=== PATIENT | female | born 1970 | race Hispanic/Latino ===

== ENCOUNTER 2017-05-19 20:14 | Emergency (ER) | END 2017-05-19 21:31 | disposition left against medical advice (07) | LOC: ERS 20:14 | DX: Z53.21 Procedure and treatment not carried out due to patient leaving prior to being seen by health care provider (principal) ==

== ENCOUNTER 2017-06-21 21:48 | Emergency (ER) | payer OTHER ==
[2017-06-21] MEDS ORDERED: Ketorolac Tromethamine 60 MG/2 ML VIAL ONE (23:05)
[2017-06-21] MEDS ORDERED: Cyclobenzaprine 10 MG TAB ONE (23:05)
--- NOTE | 2017-06-21 23:20 | RAD ---
TWO VIEWS CHEST: 06/21/17 HISTORY: Right rib pain. PA and lateral views of the chest is obtained. The lungs are well aerated. No evidence of active intr athoracic disease seen. No evidence of effusions, pneumonia or pneumothorax seen. IMPRESSION: Normal two views chest. POS: [facility]
--- NOTE | 2017-06-21 23:21 | RAD ---
TWO VIEWS RIGHT HIP 06/21/17 HISTORY: Injury to right hip by an elevator with right hip pain. AP and frogleg views right hip is obtained. No evidence of right hip fractures, subluxations or bony lesions seen. IMPRESSION: Normal two views right hip. POS: [facility]
== END 2017-06-21 23:31 | disposition home or self-care (01) ==
LOC: ERS 21:48
DX: S20.211A Contusion of right front wall of thorax, initial encounter (principal); S70.01XA Contusion of right hip, initial encounter; W22.8XXA Striking against or struck by other objects, initial encounter; Y92.69 Other specified industrial and construction area as the place of occurrence of the external cause; Y99.0 Civilian activity done for income or pay
CPT/HCPCS: 71020; 96372; J1885

== ENCOUNTER 2017-08-29 17:20 | Emergency (ER) | payer SELFPAY ==
[2017-08-29 17:50] LABS: #Eosinphils 1.7 thou/uL (0.0-0.7); #Monocytes 0.5 thou/uL (0.11-0.59); #Neutrophils 7.4 thou/uL (1.40-6.50); %Basophils 0.4 % (0.0-1.0); %Eosinophils 15.8 % (0.0-10.0); %Lymphocytes 9.8 % (21.0-51.0); %Monocytes 4.9 % (0.0-10.0); %Neutrophils 69.2 % (42.0-75.0); Mean Corpuscular HGB CONC 32.1 g/dL (32.0-36.0); Mean Corpuscular Hemoglobin 30.4 pg (27.0-31.0); Mean Corpuscular Volume 94.9 fl (81.0-99.0); Platelet Count 294 thou/uL (130-400); RBC Distribution Width 13.7 % (11.5-14.5); Red Blood Cell (RBC) Count 4.28 mill/uL (4.20-5.40); White Blood Cell (WBC) Count 10.7 thou/uL (4.8-10.8)
[2017-08-29 18:18] LABS: ALT (SGPT) 16 U/L (8-55); AST (SGOT) 18 U/L (5-34); Albumin 3.7 g/dL (3.5-5.0); Alkaline Phosphatase 114 U/L (40-150); Anion Gap 11 mmol/L (10-20); BUN (Urea Nitrogen) 16 mg/dL (7.0-18.7); Bilirubin, Total 0.4 mg/dL (0.2-1.2); Calc. Creatinine Clearance 0 mL/min (70-130); Calcium 8.6 mg/dL (7.8-10.44); Carbon Dioxide 22 mmol/L (22-29); Chloride 107 mmol/L (98-107); Estimated GFR-MDRD Greater than 90; Globulin 3.6 g/dL (2.4-3.5); Glucose 103 mg/dL (70-105); Potassium 3.7 mmol/L (3.5-5.1); Protein, Total 7.3 g/dL (6.0-8.3); Sodium 136 mmol/L (136-145)
[2017-08-29 18:27] LABS: CK (CPK) 56 U/L (29-168); Lipase 17 U/L (8-78)
[2017-08-29 18:29] LABS: CKMB 1.3 ng/mL (0-6.6); Troponin I Less than 0.010 ng/mL (< 0.028)
[2017-08-29 18:38] LABS: Bilirubin Negative (Negative); Blood, Urine Negative (Negative); Clarity CLEAR (Clear); Glucose, Urine (Dipstick) Negative (Negative); Leukocyte Moderate (Negative); Nitrite Negative (Negative); Protein, Urine (Dipstick) Trace mg/dL (Neg-Trace); Specific Gravity, Urine 1.034 (1.002-1.036)
[2017-08-29 18:41] LABS: Bacteria/HPF None Seen HPF (None Seen); Hyaline Casts/LPF 7-10 HYALINE CAST LPF (0-3 Hyaline); Pathc Cast-AUWi Flag 0.67 (0-2.49); WBC/HPF 21-50 HPF (0-3)
[2017-08-29 18:54] LABS: Crystals/HPF None Seen HPF (Negative); Oval Fat Bodies/HPF None Seen HPF (None Seen); Renal Epithelial None Seen HPF (0-3); Transitional Epithelial NONE SEEN HPF (0-3); Trichomonas/HPF None Seen HPF (None Seen); Yeast-All Forms None Seen HPF (None Seen)
[2017-08-29] MEDS ORDERED: Lidocaine Viscous Sol 2% 15 ml UD Cup ONE (18:56)
[2017-08-29] MEDS ORDERED: Pantoprazole 40 MG VIAL ONE (18:57)
[2017-08-29] MEDS ORDERED: Ondansetron HCl/PF 4 MG/2 ML Vial ONE (18:57)
[2017-08-29] MEDS ORDERED: Mag-Al 1200 mg/1200 mg/30 ML UDCUP ONE (18:57)
--- NOTE | 2017-08-29 19:13 | RAD ---
FRONTAL RADIOGRAPH CHEST PORTABLE UPRIGHT: Date: 08-29-17 Comparison: 06-21-17 History: Abdominal pain with nausea, vomiting and diarrhea. FINDINGS: No pneumothorax, pleural fluid, focal consolidation or alveolar edema. Heart and mediastinal contours are unremarkable. Osseous structures appear intact. IMPRESSION: No acute findings. POS: [facility]
== END 2017-08-29 21:37 | disposition home or self-care (01) ==
LOC: ERS 17:20
DX: K52.9 Noninfective gastroenteritis and colitis, unspecified (principal); N39.0 Urinary tract infection, site not specified; I10 Essential (primary) hypertension; Z79.899 Other long term (current) drug therapy
CPT/HCPCS: 36415; 71045; 80053; 81003; 81015; 82550; 82553; 83690; 84484; 85025; 93005; 96361; 96372; 96374; 96375; C9113; J2405

== ENCOUNTER 2018-12-06 23:27 | Emergency (ER) | payer SELFPAY ==
[2018-12-06] MEDS ORDERED: Lidocaine 1% w/Epinephrine 1:100K 20 ML VIAL ONE (23:35)
[2018-12-06] MEDS ORDERED: Acetaminophen/Codeine 30-300mg Tablet ONE (23:57)
[2018-12-07] MEDS ORDERED: Bacitracin Zinc 1 Packet ONE (01:58)
--- NOTE | 2018-12-07 07:25 | CT ---
PRELIMINARY REPORT/[facility]/EMERGENCY AFTER HOURS PROCEDURE: EXAM: CT Head Without Contrast EXAM DATE/TIME: 12/07/2018 12:17 AM CLINICAL HISTORY: 47 years old, female; Pain and injury or trauma; Initial encounter; Laceration; Without residual fore ign body; Head, generalized; Headache; Patient HX: F47 presents to ED C/O fall associated w/ head lac . PT denies loc but reports head and neck pain. PT denies any lower extremity pain and reports some c ontusions on the ule TECHNIQUE: Imaging protocol: Axial computed tomography images of the head without contrast. COMPARISON: No relevant prior studies available. FINDINGS: Brain: No intracrainal hemorrhage. No midline shift. The brain parenchyma appears normal for age. Ventricles: No ventriculomegaly. Bones/joints: Unremarkable. No acute fracture. Sinuses: Visualized sinuses are unremarkable. No fluid levels. Mastoid air cells: Visualized mastoid air cells are well aerated. No mastoid effusion. Soft tissues: Unremarkable. IMPRESSION: No acute intracranial abnormality. Thank you for allowing us to participate in the care of your patient. Dictated and Authenticated by: Shaka Merritt MD 12/07/2018 12:42 AM Central Time ([place] & [place]) FINAL REPORT EMERGENCY AFTER HOURS CT BRAIN: I agree with the preliminary report provided. No acute intracranial abnormality is evident. There i s a left parietal scalp contusion. POS: [facility]
--- NOTE | 2018-12-07 07:25 | RAD ---
LEFT HUMERUS 2 VIEWS: INDICATION: History of fall with left arm pain. COMPARISON: None. FINDINGS: No acute fracture or subluxation is evident. IMPRESSION: No acute abnormality. POS: [facility]
--- NOTE | 2018-12-07 07:27 | CT ---
PRELIMINARY REPORT/[facility]/EMERGENCY AFTER HOURS PROCEDURE: EXAM: CT Cervical Spine Without Contrast EXAM DATE/TIME: 12/07/2018 12:17 AM CLINICAL HISTORY: 47 years old, female; Pain and injury or trauma; Initial encounter; Laceration; Without foreign body; Patient HX: F47 presents to ED C/O fall associated w/ head lac. PT denies loc but reports head and n nelly pain. PT denies any lower extremity pain and reports some contusions on the ule TECHNIQUE: Imaging protocol: Axial computed tomography images of the cervical spine without contrast. Coronal an d sagittal reformatted images were created and reviewed. COMPARISON: No relevant prior studies available. FINDINGS: Vertebrae: No acute fracture. Normal alignment. Discs/Spinal canal/Neural foramina: No spinal stenosis. No neural foraminal narrowing. Soft tissues: Unremarkable. Lungs: Lung apices are normal. IMPRESSION: No acute findings. Thank you for allowing us to participate in the care of your patient. Dictated and Authenticated by: Shaka Merritt MD 12/07/2018 12:59 AM Central Time ([place] & [place]) FINAL REPORT EMERGENCY AFTER HOURS CT CERVICAL SPINE: I agree with the preliminary report provided. No acute fracture or subluxation is demonstrated. POS:
== END 2018-12-07 02:01 | disposition home or self-care (01) ==
LOC: ERS 23:27
DX: S01.01XA Laceration without foreign body of scalp, initial encounter (principal); I10 Essential (primary) hypertension; Z79.899 Other long term (current) drug therapy; W22.8XXA Striking against or struck by other objects, initial encounter
CPT/HCPCS: 12002; 70450; 72125; J2001

== ENCOUNTER 2018-12-11 15:16 | Emergency (ER) | payer SELFPAY ==
[2018-12-11] MEDS ORDERED: HYDROcodone/Acetaminophen 5/325 mg Tablet ONE (15:45)
== END 2018-12-11 15:48 | disposition home or self-care (01) ==
LOC: ERS 15:16
DX: S01.01XD Laceration without foreign body of scalp, subsequent encounter (principal); I10 Essential (primary) hypertension; Z79.899 Other long term (current) drug therapy

== ENCOUNTER 2019-02-20 19:41 | Emergency (ER) | payer SELFPAY ==
[2019-02-20] MEDS ORDERED: Ketorolac Tromethamine 30 MG/ML VIAL ONE (20:25)
--- NOTE | 2019-02-20 21:19 | RAD ---
XR Ribs Lt>=2 View W/PA CXR HISTORY: Left rib injury COMPARISON: None. FINDINGS: Heart size and mediastinum are within normal limits. The lungs are clear of infiltrates. No pneumothorax or pleural effusion. No rib fractures are identified. Incidental note is made of a prominent right-sided osteophyte at the L3-4 level IMPRESSION: Negative left ribs.
== END 2019-02-20 21:30 | disposition home or self-care (01) ==
LOC: ERS 19:41
DX: S20.212A Contusion of left front wall of thorax, initial encounter (principal); I10 Essential (primary) hypertension; W01.0XXA Fall on same level from slipping, tripping and stumbling without subsequent striking against object, initial encounter
CPT/HCPCS: 96372; J1885

== ENCOUNTER 2019-03-07 17:19 | Observation (INO) | payer SELFPAY ==
[2019-03-07 17:48] LABS: #Eosinphils 1.4 thou/uL (0.0-0.7); #Lymphocytes 2.1 thou/uL (1.20-3.40); #Monocytes 0.4 thou/uL (0.11-0.59); #Neutrophils 4.7 thou/uL (1.40-6.50); %Basophils 0.5 % (0.0-1.0); %Eosinophils 16.1 % (0.0-10.0); %Lymphocytes 24.2 % (21.0-51.0); %Monocytes 4.8 % (0.0-10.0); %Neutrophils 54.5 % (42.0-75.0); Hemoglobin 13.6 g/dL (12.0-16.0); Mean Corpuscular HGB CONC 33.8 g/dL (32.0-36.0); Mean Corpuscular Hemoglobin 30.3 pg (27.0-31.0); Mean Corpuscular Volume 89.8 fL (78.0-98.0); Mean Platelet Volume 8.6 fL (7.4-10.4); Platelet Count 253 thou/uL (130-400); RBC Distribution Width 12.4 % (11.5-14.5); White Blood Cell (WBC) Count 8.5 thou/uL (4.8-10.8)
--- NOTE | 2019-03-07 18:05 | RAD ---
CHEST ONE VIEW: 03/07/19 HISTORY: Chest pain. COMPARISON: 02/20/19. FINDINGS: Cardiac silhouette is magnified by projection. Pulmonary vasculature is unremarkable. Mediastinum is midline. No confluent air space consolidation or evidence of pneumothorax. IMPRESSION: No active cardiopulmonary abnormalities are demonstrated. POS: [facility]
[2019-03-07 18:30] LABS: ALT (SGPT) 24 U/L (8-55); AST (SGOT) 27 U/L (5-34); Albumin 4.4 g/dL (3.5-5.0); Alkaline Phosphatase 106 U/L (40-150); Anion Gap 14 mmol/L (10-20); BUN (Urea Nitrogen) 13 mg/dL (7.0-18.7); Bilirubin, Total 0.5 mg/dL (0.2-1.2); CK (CPK) 117 U/L (29-168); Calc. Creatinine Clearance 0 mL/min (70-130); Calcium 10.1 mg/dL (7.8-10.44); Carbon Dioxide 25 mmol/L (22-29); Chloride 103 mmol/L (98-107); Estimated GFR-MDRD Greater than 90; Globulin 3.8 g/dL (2.4-3.5); Glucose 91 mg/dL (70-105); Lipase 14 U/L (8-78); Potassium 3.6 mmol/L (3.5-5.1); Protein, Total 8.2 g/dL (6.0-8.3); Sodium 138 mmol/L (136-145)
[2019-03-07] MEDS ORDERED: Nitroglycerin 2% Ointment 1 INCH/1 GM Packet ONE (19:32)
[2019-03-07] MEDS ORDERED: Aspirin Chewable 81 MG TAB ONE (19:33)
[2019-03-07] MEDS ORDERED: Acetaminophen 500 MG TAB ONE (20:56)
[2019-03-07 21:12] LABS: Troponin I Less than 0.010 ng/mL (< 0.028)
[2019-03-08 00:15] LABS: Troponin I Less than 0.010 ng/mL (< 0.028)
[2019-03-08] MEDS ORDERED: Guaifenesin DM 100-10/5 ML UDCUP PO PRN (01:44)
[2019-03-08] MEDS ORDERED: Bisacodyl 10 MG SUPP PR PRN (01:44)
[2019-03-08] MEDS ORDERED: Acetaminophen 325 MG TAB PO PRN (01:44)
[2019-03-08] MEDS ORDERED: Senokot S 8.6-50 MG TAB PO PRN (01:44)
--- NOTE | 2019-03-08 03:02 | HP ---
REASON FOR ADMISSION: Chest pain. HISTORY OF PRESENTING ILLNESS: The patient gives history of having retrosternal and left-sided chest pain, which started out 2 days back. This pain has been radiating to the arm as well. She mentions that the pain is 4 to 5/10 in intensity and it comes and goes. Each time it comes, the pain lasts for 10 minutes or so. It is worse on exertion. She has also had elevated blood pressures from last 2 days. No cough or fever. This morning, the patient also developed dizziness, felt nauseous and very tired, hence made it to emergency room. She mentions that she has had a stress test done at [facility] 3 years back, which was normal as far as she knows. PAST MEDICAL AND SURGICAL HISTORY: 1. 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 2. Hypertension. 3. No prior cardiac catheterization. Appendectomy. 4. Tubal ligation. 5. Colonoscopy done on the 07 of February showed diverticulosis. No mass was seen. CURRENT MEDICATION: 1. Aspirin 81 mg p.o. daily. 2. Lopressor 25 mg p.o. twice daily. ALLERGIES: BENADRYL, PENICILLIN. PERSONAL HISTORY: Does not abuse alcohol or drugs. No history of smoking. FAMILY HISTORY: She does not know much about her biological parents as she was adopted. Power of assistant attorney general is her son, Mr. Matt and fiance, Mr. Dunham. CODE STATUS: Full. REVIEW OF SYSTEMS: CONSTITUTIONAL: Negative for weight loss or gain, ability to conduct usual activities. SKIN: Negative for rash, itching. EYES: Negative for double vision, pain. ENT/MOUTH: Negative for nose bleeding, neck stiffness, pain, tenderness. CARDIOVASCULAR: Negative for palpitations, dyspnea on exertion, orthopnea. RESPIRATORY: Negative for shortness of breath, wheezing, cough, hemoptysis, fever or night sweats. GASTROINTESTINAL: Negative for poor appetite, abdominal pain, heartburn, nausea , vomiting, constipation, or diarrhea. GENITOURINARY: Negative for urgency, frequency, dysuria, nocturia. MUSCULOSKELETAL: Negative for pain, swelling. NEUROLOGIC/PSYCHIATRIC: Negative for anxiety, depression. ALLERGY/IMMUNOLOGIC: Negative for skin rash, bleeding tendency. PHYSICAL EXAMINATION: GENERAL: The patient is a 48-year-old female, who is currently not in any acute distress. VITAL SIGNS: Blood pressure 180/90, pulse 72 per minute, respiratory rate 14 per minute, temperature 98.4 degrees Fahrenheit, saturating 98% on room air. NECK: Supple. No elevated JVD. HEENT: Eyes; extraocular muscles intact. Pupils reacting to light. Oral cavity, mucous membranes are moist. No exudates or congestion. CARDIOVASCULAR: S1-S2 heard, regular rhythm. RESPIRATORY: Air entry 2+ bilateral. No rales or rhonchi. ABDOMEN: Soft, bowel sounds heard. No tenderness, rigidity, or guarding. EXTREMITIES: No peripheral edema or calf tenderness. VASCULAR: Peripheral pulses 2+ bilateral. No ischemic ulcerations or gangrene. CENTRAL NERVOUS SYSTEM: No gross focal deficits noted. The patient is alert, awake, oriented well. PSYCHIATRIC: The patient's mood is euthymic. No hallucinations or delusions. LABORATORY DATA: EKG done shows normal sinus rhythm at 73 beats per minute. There is poor R-wave progression seen. Chest x-ray done shows no acute cardiopulmonary abnormality. Electrolytes stable. CBC is within normal limits. CLINICAL IMPRESSION AND PLAN: The patient will be under observation on telemetry for chest pain, rule out acute coronary syndrome. She will be on full-dose aspirin and continue her home dose of 25 mg Lopressor twice daily as before. A nuclear stress test will be obtained. If the stress test is normal, patient can safely be discharged home. We will continue to closely monitor her on telemetry. Job ID: [id number] MTDD
[2019-03-08 04:44] LABS: #Eosinphils 1.6 thou/uL (0.0-0.7); #Monocytes 0.5 thou/uL (0.11-0.59); #Neutrophils 3.9 thou/uL (1.40-6.50); %Basophils 0.5 % (0.0-1.0); %Eosinophils 19.3 % (0.0-10.0); %Lymphocytes 25.3 % (21.0-51.0); %Monocytes 6.3 % (0.0-10.0); %Neutrophils 48.6 % (42.0-75.0); Hemoglobin 12.5 g/dL (12.0-16.0); Mean Corpuscular HGB CONC 34.1 g/dL (32.0-36.0); Mean Corpuscular Hemoglobin 31.2 pg (27.0-31.0); Mean Corpuscular Volume 91.7 fL (78.0-98.0); Platelet Count 222 thou/uL (130-400); RBC Distribution Width 12.5 % (11.5-14.5); Red Blood Cell (RBC) Count 4.02 mill/uL (4.20-5.40)
[2019-03-08 05:06] LABS: Anion Gap 14 mmol/L (10-20); BUN (Urea Nitrogen) 16 mg/dL (7.0-18.7); Calc. Creatinine Clearance 113 mL/min (70-130); Calcium 9.2 mg/dL (7.8-10.44); Carbon Dioxide 22 mmol/L (22-29); Cardiac Risk 3.2 (Less than 4.5); Chloride 108 mmol/L (98-107); Cholesterol 158 mg/dl (< 200 Desired); Estimated GFR-MDRD Greater than 90; Glucose 97 mg/dL (70-105); HDL Cholesterol 50 mg/dL (>60 Neg Risk); LDL Cholesterol, Calculated 99 mg/dL; Potassium 3.6 mmol/L (3.5-5.1); Sodium 140 mmol/L (136-145); Triglycerides 47 mg/dL (Less than 150)
[2019-03-08 07:23] VITALS: TEMP 97.9
[2019-03-08] MEDS ORDERED: Aspirin Chewable 81 MG TAB PO SCH (09:00)
[2019-03-08] MEDS ORDERED: Famotidine 20 MG TAB PO SCH (09:00)
[2019-03-08] MEDS ORDERED: Metoprolol Tartrate 25 MG TAB PO SCH (09:00)
[2019-03-08] MEDS ORDERED: Enoxaparin Sodium 40 MG/0.4 ML SYRINGE SC SCH (09:00)
[2019-03-08] MEDS ORDERED: Aspirin 325 mg Enteric Coated Tablet PO SCH (09:00)
--- NOTE | 2019-03-08 12:36 | NM ---
Radionucleotide stress and rest myocardial perfusion scan with CT attenuation correction and SPECT im aging Left wall motion evaluation and ejection fraction HISTORY: Chest pain. FINDINGS: Kaleb protocol. Total test time 9:42. Heterogeneous uptake of radiotracer throughout the left ventricular myocardium. No focal perfusion de fect or reversibility. QGS analysis of gated SPECT images shows no focal wall motion abnormalities. TID1.0. LHR 38%. Left ventricular ejection fraction calculated at 69%. IMPRESSION: Normal myocardial perfusion scan. Normal LVEF.
[2019-03-08 12:41] VITALS: BP 125/58
[2019-03-08 13:32] VITALS: BMI 30.2
--- NOTE | 2019-03-09 15:16 | DIS ---
DATE OF ADMISSION: 03/07/2019 DATE OF DISCHARGE: 03/08/2019 DISCHARGE DIAGNOSES: 1. Chest pain. 2. Hypertension. 3. Reported history of prior myocardial infarctions. HISTORY OF PRESENT ILLNESS: The patient is a 48-year-old female, who presented via the emergency department reporting substernal chest pain that was radiating to her left arm as well. She initially had a workup with some poor R-wave progression on her EKG, normal chest x-ray, and normal labs. HOSPITAL COURSE: The patient was placed in observation, continued on telemetry. She had serial cardiac isoenzymes, which were unremarkable, and no findings on her quality assurance monitor chassis. She subsequently underwent a stress test with Nuclear Medicine that showed normal myocardial perfusion with an ejection fraction calculated at 69%. There was no evidence of any prior myocardial injury as the patient had indicated was the case. These findings were discussed with the patient. She was feeling at her baseline and was comfortable with discharge for outpatient followup. PHYSICAL EXAMINATION: VITAL SIGNS: At the time of discharge, temperature 97.9, pulse 75, respirations 18, O2 saturation 98% on room air, and BP 125/58. GENERAL: She is awake, alert, oriented, pleasant, and cooperative. HEART: Regular rate and rhythm. No murmurs, gallops, or rubs. LUNGS: Clear bilaterally. ABDOMEN: Soft, nontender, and nondistended. Positive bowel sounds. No masses. No organomegaly. EXTREMITIES: No cyanosis, clubbing, or edema. DISPOSITION: The patient is discharged to home. DIET: She is to be on a heart-healthy diet. ACTIVITY: Her activity level is as tolerated. MEDICATIONS: She will be on: 1. Metoprolol 25 b.i.d. 2. Metronidazole 500 mg b.i.d. FOLLOWUP: She will follow up with the [facility] and can return to the hospital should she have any problems prior to that time. Job ID: [id number]
== END 2019-03-08 14:42 | disposition home or self-care (01) ==
LOC: ERS 17:19 → 2SW 20:08
PROVIDERS: ADMIT Internal Medicine; ATTEND Internal Medicine
DX: R07.2 Precordial pain (principal); I10 Essential (primary) hypertension; I25.10 Atherosclerotic heart disease of native coronary artery without angina pectoris; Z79.82 Long term (current) use of aspirin; Z79.899 Other long term (current) drug therapy; Z88.0 Allergy status to penicillin; Z88.8 Allergy status to other drugs, medicaments and biological substances
CPT/HCPCS: 36415; 71045; 78452; 80048; 80053; 80061; 82550; 83690; 84484; 85025; 93005; 93017; 94760; 96360; 96361; A9500; G0378

== ENCOUNTER 2019-11-04 20:31 | Emergency (ER) | payer OTHER, SELFPAY ==
--- NOTE | 2019-11-04 21:15 | CT ---
Exam: Head CT without contrast HISTORY: Patient slipped and fell hour to arrival. Pain COMPARISON: none FINDINGS: Hemorrhage: No intraparenchymal hemorrhage or extra-axial hematoma. Brain parenchyma: Cortical charlton-white matter differentiation is preserved. No mass effect or midline shift. Basilar cisterns are patent. Ventricular system: Ventricles and sulci are patent and symmetric. Calvarium: Intact. Sinuses and mastoid air cells: Adequate aeration. IMPRESSION: No intracranial post traumatic sequelae.
--- NOTE | 2019-11-04 21:17 | CT ---
Exam: CT cervical spine without contrast HISTORY: Fall. Pain. Trauma. COMPARISON: 12/07/2018 FINDINGS: No craniocervical dissociation. Appropriate alignment of the lateral masses of C1 and C2. Intact odon toid process Appropriate alignment of the facets. Straightening of cervical lordosis may be due to patient position, muscle spasm or cervical collar. Soft tissue neck structures: No mass, lymphadenopathy or hematoma. No prevertebral soft tissue swelli ng. Upper mediastinum and lung apices: Unremarkable Central spinal canal: Neural foramina and central spinal canal are patent. Evaluation is limited by t echnique Vertebral bodies: Cervical spine vertebral body height is maintained. No fracture. IMPRESSION: 1. No fracture 2. Straightening of cervical lordosis. If there is concern for ligamentous injury, consider MRI
[2019-11-04] MEDS ORDERED: Ondansetron ODT 4 MG TAB ONE (21:27)
[2019-11-04] MEDS ORDERED: Ketorolac Tromethamine 30 MG/ML VIAL ONE (21:27)
== END 2019-11-04 21:42 | disposition home or self-care (01) ==
LOC: ERS 20:31
DX: S06.0X9A Concussion with loss of consciousness of unspecified duration, initial encounter (principal); I10 Essential (primary) hypertension; I25.2 Old myocardial infarction; W22.8XXA Striking against or struck by other objects, initial encounter
CPT/HCPCS: 70450; 72125; 96372; J1885; L0120; Q0162

== ENCOUNTER 2020-07-29 14:17 | Emergency (ER) | payer OTHER, SELFPAY ==
[~2020-07-29 14:17] MED LIST: Iopamidol-370 76% 500 ML 1 ML ONE
[2020-07-29 15:46] LABS: Bilirubin Negative (Negative); Blood, Urine Negative (Negative); Clarity Clear (Clear); Glucose, Urine (Dipstick) 300 mg/dL (Negative); Ketone, Urine Trace mg/dL (Negative); Leukocyte Negative Leu/uL (Negative); Nitrite Negative (Negative); Protein, Urine (Dipstick) 20 mg/dL (Neg-Trace); Specific Gravity, Urine 1.035 (1.002-1.036); pH, Urine 5.5 (5.0-9.0)
[2020-07-29 16:02] LABS: #Lymphocytes 0.7 thou/uL (1.20-3.40); #Monocytes 0.1 thou/uL (0.11-0.59); #Neutrophils 6.5 thou/uL (1.40-6.50); %Eosinophils 0.2 % (0.0-10.0); %Lymphocytes 9.2 % (21.0-51.0); %Monocytes 0.6 % (0.0-10.0); Hemoglobin 12.6 g/dL (12.0-16.0); Mean Corpuscular HGB CONC 34.4 g/dL (32.0-36.0); Mean Corpuscular Hemoglobin 30.5 pg (27.0-31.0); Mean Corpuscular Volume 88.9 fL (78.0-98.0); Mean Platelet Volume 8.2 fL (7.4-10.4); Platelet Count 247 thou/uL (130-400); RBC Distribution Width 12.3 % (11.5-14.5); Red Blood Cell (RBC) Count 4.13 mill/uL (4.20-5.40); White Blood Cell (WBC) Count 7.3 thou/uL (4.8-10.8)
[2020-07-29 16:22] LABS: ALT (SGPT) 22 U/L (8-55); AST (SGOT) 23 U/L (5-34); Albumin 3.8 g/dL (3.5-5.0); Alkaline Phosphatase 134 U/L (40-110); Anion Gap 12 mmol/L (10-20); BUN (Urea Nitrogen) 20 mg/dL (7.0-18.7); Bilirubin, Total 0.2 mg/dL (0.2-1.2); Calc. Creatinine Clearance 0 mL/min (70-130); Carbon Dioxide 23 mmol/L (22-29); Chloride 108 mmol/L (98-107); Globulin 3.9 g/dL (2.4-3.5); Glucose 225 mg/dL (70-105); Protein, Total 7.7 g/dL (6.0-8.3); Sodium 139 mmol/L (136-145)
[2020-07-29] MEDS ORDERED: Ondansetron PF 4 MG/2 ML Vial ONE (17:01)
[2020-07-29] MEDS ORDERED: Ketorolac Tromethamine 30 MG/ML VIAL ONE (17:01)
--- NOTE | 2020-07-29 17:29 | CT ---
CT OF THE ABDOMEN AND PELVIS WITH IV CONTRAST INDICATION: History of right-sided flank pain and dysuria and suprapubic pain for 3 days COMPARISON: None FINDINGS: ABDOMEN: Lung bases: Clear Liver: Mild fatty liver Gallbladder: Normal appearing. Pancreas: Normal. Adrenal glands: Normal. Spleen: Normal. Kidneys and ureters: Normal. No hydronephrosis. Vasculature: Normal. Lymph nodes:No lymphadenopathy. Free fluid in abdomen:No free fluid is evident. PELVIS: Small and large bowel: Colonic diverticulosis with a mild amount retained stool within the colon. Sma ll bowel is of normal caliber. There is food and debris within the stomach. Appendix:Not visualized and may be surgically absent Bladder: Partially decompressed with mild wall thickening Rectal and perirectal soft tissues:Normal. Reproductive structures: Normal. Free fluid in pelvis: No free fluid is evident. Lymphadenopathy pelvis: No lymphadenopathy is evident. Osseous structures: No acute osseous abnormality. No destructive osteolytic or osteoblastic lesion i s identified. There is scattered degenerative and osteoarthritic changes. Soft tissues:Normal. IMPRESSION: 1. The bladder is partially decompressed with mild wall thickening. Component of cystitis is not excl uded. 2. No hydronephrosis or overt findings of pyelonephritis is demonstrated. 3. Mild fatty liver. 4. Colonic diverticulosis with mild amount retained stool within the colon.
[2020-07-29] MEDS ORDERED: Morphine 4 MG/ML VIAL ONE (17:53)
== END 2020-07-29 18:55 | disposition home or self-care (01) ==
LOC: ERS 14:17
DX: R10.31 Right lower quadrant pain (principal); Z79.899 Other long term (current) drug therapy; I25.10 Atherosclerotic heart disease of native coronary artery without angina pectoris; I25.2 Old myocardial infarction; I10 Essential (primary) hypertension
CPT/HCPCS: 36415; 74177; 80053; 81003; 85025; 96374; 96375; J1885; J2270; J2405; Q9967

== ENCOUNTER 2021-05-12 21:30 | Emergency (ER) | payer SELFPAY ==
[2021-05-12 22:04] LABS: #Eosinphils 0.8 thou/uL (0.0-0.7); #Lymphocytes 2.3 thou/uL (1.20-3.40); #Monocytes 0.4 thou/uL (0.11-0.59); #Neutrophils 8.8 thou/uL (1.40-6.50); %Basophils 0.4 % (0.0-1.0); %Eosinophils 6.3 % (0.0-10.0); %Lymphocytes 18.7 % (21.0-51.0); %Monocytes 3.3 % (0.0-10.0); %Neutrophils 71.3 % (42.0-75.0); Hemoglobin 13.7 g/dL (12.0-16.0); Mean Corpuscular HGB CONC 32.9 g/dL (32.0-36.0); Mean Corpuscular Hemoglobin 30.7 pg (27.0-31.0); Mean Corpuscular Volume 93.3 fL (78.0-98.0); Mean Platelet Volume 7.8 fL (7.4-10.4); Platelet Count 335 thou/uL (130-400); RBC Distribution Width 12.4 % (11.5-14.5); Red Blood Cell (RBC) Count 4.45 mill/uL (4.20-5.40); White Blood Cell (WBC) Count 12.4 thou/uL (4.8-10.8)
[2021-05-12 22:12] LABS: Bilirubin Negative (Negative); Blood, Urine Negative (Negative); Clarity Clear (Clear); Glucose, Urine (Dipstick) Normal (Negative); Ketone, Urine Negative (Negative); Leukocyte Negative Leu/uL (Negative); Nitrite Negative (Negative); Protein, Urine (Dipstick) Negative (Neg-Trace); Specific Gravity, Urine 1.029 (1.002-1.036); Urobilinogen Normal mg/dL (Less than 2); pH, Urine 5.5 (5.0-9.0)
[2021-05-12 22:22] LABS: ALT (SGPT) 24 U/L (8-55); AST (SGOT) 20 U/L (5-34); Albumin 3.6 g/dL (3.5-5.0); Alkaline Phosphatase 141 U/L (40-110); Anion Gap 12 mmol/L (10-20); BUN (Urea Nitrogen) 21 mg/dL (9.8-20.1); Bilirubin, Total 0.3 mg/dL (0.2-1.2); Calc. Creatinine Clearance 0 mL/min (70-130); Calcium 9.1 mg/dL (7.8-10.44); Carbon Dioxide 27 mmol/L (22-29); Chloride 102 mmol/L (98-107); Globulin 3.5 g/dL (2.4-3.5); Glucose 108 mg/dL (70-105); Lipase 110 U/L (8-78); Potassium 4.3 mmol/L (3.5-5.1); Protein, Total 7.1 g/dL (6.0-8.3); Sodium 137 mmol/L (136-145)
[2021-05-12] MEDS ORDERED: Dicyclomine 20 MG TAB ONE (23:45)
[2021-05-12] MEDS ORDERED: Ondansetron PF 4 MG/2 ML Vial ONE (23:47)
== END 2021-05-13 00:50 | disposition home or self-care (01) ==
LOC: ERS 21:30
DX: K29.70 Gastritis, unspecified, without bleeding (principal); D72.829 Elevated white blood cell count, unspecified; R94.31 Abnormal electrocardiogram [ECG] [EKG]; I25.10 Atherosclerotic heart disease of native coronary artery without angina pectoris; I10 Essential (primary) hypertension; I25.2 Old myocardial infarction; Z95.5 Presence of coronary angioplasty implant and graft; Z79.899 Other long term (current) drug therapy
CPT/HCPCS: 36415; 74177; 80053; 81003; 83690; 84484; 85025; 93005; 96374; J2405; Q9967

== ENCOUNTER 2021-05-18 18:15 | Emergency (ER) | payer SELFPAY ==
[2021-05-18 19:13] LABS: #Eosinphils 0.8 thou/uL (0.0-0.7); #Lymphocytes 1.9 thou/uL (1.20-3.40); #Monocytes 0.4 thou/uL (0.11-0.59); #Neutrophils 4.1 thou/uL (1.40-6.50); %Basophils 0.7 % (0.0-1.0); %Eosinophils 11.2 % (0.0-10.0); %Lymphocytes 25.9 % (21.0-51.0); %Neutrophils 56.3 % (42.0-75.0); Hemoglobin 12.4 g/dL (12.0-16.0); Mean Corpuscular HGB CONC 33.8 g/dL (32.0-36.0); Mean Corpuscular Hemoglobin 31.2 pg (27.0-31.0); Mean Corpuscular Volume 92.4 fL (78.0-98.0); Mean Platelet Volume 7.7 fL (7.4-10.4); Platelet Count 274 thou/uL (130-400); RBC Distribution Width 12.5 % (11.5-14.5); Red Blood Cell (RBC) Count 3.98 mill/uL (4.20-5.40); White Blood Cell (WBC) Count 7.3 thou/uL (4.8-10.8)
[2021-05-18 19:20] LABS: BHCG - Serum Negative (NEGATIVE); Pregs Control Background? CLEAR/WHITE (CLR/WHITE); Pregs Control Bar Appear? YES (CONTROL BAR)
[2021-05-18 19:33] LABS: ALT (SGPT) 28 U/L (8-55); AST (SGOT) 20 U/L (5-34); Albumin 3.7 g/dL (3.5-5.0); Alkaline Phosphatase 143 U/L (40-110); Anion Gap 11 mmol/L (10-20); BUN (Urea Nitrogen) 21 mg/dL (9.8-20.1); Bilirubin, Total 0.2 mg/dL (0.2-1.2); Calc. Creatinine Clearance 0 mL/min (70-130); Calcium 9.2 mg/dL (7.8-10.44); Carbon Dioxide 24 mmol/L (22-29); Chloride 107 mmol/L (98-107); Globulin 3.9 g/dL (2.4-3.5); Glucose 153 mg/dL (70-105); Lipase 62 U/L (8-78); Potassium 3.6 mmol/L (3.5-5.1); Protein, Total 7.6 g/dL (6.0-8.3); Sodium 138 mmol/L (136-145)
[2021-05-18] MEDS ORDERED: Morphine 4 MG/ML VIAL ONE (19:36)
== END 2021-05-18 20:47 | disposition home or self-care (01) ==
LOC: ERS 18:15
DX: R10.11 Right upper quadrant pain (principal); R10.13 Epigastric pain; I25.10 Atherosclerotic heart disease of native coronary artery without angina pectoris; I25.2 Old myocardial infarction; I10 Essential (primary) hypertension; Z79.52 Long term (current) use of systemic steroids; Z79.899 Other long term (current) drug therapy
CPT/HCPCS: 76705; 80053; 83690; 84703; 85025; 96374; J2270

== ENCOUNTER 2022-01-18 22:39 | Observation (INO) | payer SELFPAY ==
[2022-01-19] MEDS ORDERED: Ondansetron ODT 4 MG TAB SL PRN (02:30)
[2022-01-19] MEDS ORDERED: Ondansetron PF 4 MG/2 ML Vial IVP PRN (02:30)
[2022-01-19] MEDS: Acetaminophen 325 MG TAB PO PRN ×2 (02:32→09:28)
[2022-01-19 02:39] VITALS: BMI 33.7
[2022-01-19 07:25] LABS: #Basophils 0.1 thou/uL (0.0-0.2); #Eosinphils 1.1 thou/uL (0.0-0.7); #Lymphocytes 2.2 thou/uL (1.20-3.40); #Monocytes 0.5 thou/uL (0.11-0.59); #Neutrophils 3.3 thou/uL (1.40-6.50); %Eosinophils 15.3 % (0.0-10.0); %Monocytes 6.5 % (0.0-10.0); %Neutrophils 46.2 % (42.0-75.0); Hemoglobin 12.5 g/dL (12.0-16.0); Mean Corpuscular HGB CONC 32.3 g/dL (32.0-36.0); Mean Corpuscular Volume 92.8 fL (78.0-98.0); Mean Platelet Volume 8.3 fL (7.4-10.4); Platelet Count 252 thou/uL (130-400); RBC Distribution Width 12.4 % (11.5-14.5); Red Blood Cell (RBC) Count 4.17 mill/uL (4.20-5.40); White Blood Cell (WBC) Count 7.2 thou/uL (4.8-10.8)
[2022-01-19] MEDS ORDERED: Cyclobenzaprine 10 MG TAB PO PRN (07:27)
[2022-01-19] MEDS ORDERED: HYDROcodone/Acetaminophen 5/325 mg Tablet PO PRN (07:27)
[2022-01-19 07:40] LABS: Anion Gap 13 mmol/L (10-20); BUN (Urea Nitrogen) 16 mg/dL (9.8-20.1); Calc. Creatinine Clearance 120 mL/min (70-130); Calcium 9.3 mg/dL (7.8-10.44); Carbon Dioxide 25 mmol/L (22-29); Chloride 109 mmol/L (98-107); Estimated GFR 105; Glucose 99 mg/dL (70-105); Sodium 143 mmol/L (136-145)
[2022-01-19] MEDS ORDERED: Metoprolol Tartrate 25 MG TAB PO SCH (09:00)
[2022-01-19] MEDS ORDERED: Aspirin Chewable 81 MG TAB PO SCH (09:00)
[2022-01-19 15:44] VITALS: BP 108/68; TEMP 97
[2022-01-19] MEDS ORDERED: Atorvastatin Calcium 40 MG TAB PO SCH (21:00)
[2022-01-19] MEDS ORDERED: Montelukast Sodium 10 mg Tablet PO SCH (21:00)
== END 2022-01-19 17:37 | disposition home or self-care (01) ==
LOC: NEURO 22:39
PROVIDERS: ADMIT Internal Medicine; ATTEND Internal Medicine
DX: R20.0 Anesthesia of skin (principal); R51.9 Headache, unspecified; R20.2 Paresthesia of skin; J45.909 Unspecified asthma, uncomplicated; K76.0 Fatty (change of) liver, not elsewhere classified; I10 Essential (primary) hypertension; I25.10 Atherosclerotic heart disease of native coronary artery without angina pectoris; I07.1 Rheumatic tricuspid insufficiency; Z86.718 Personal history of other venous thrombosis and embolism; Z79.899 Other long term (current) drug therapy; Z88.0 Allergy status to penicillin; Z88.8 Allergy status to other drugs, medicaments and biological substances; Z20.822 Contact with and (suspected) exposure to COVID-19
CPT/HCPCS: 36415; 70551; 80048; 85025; 93306; G0378; U0003; U0005